=== PATIENT | male | born 1985 | race African-American/Black ===

== ENCOUNTER 2022-04-14 06:29 | Emergency (ER) | payer SELFPAY ==
--- NOTE | ~2022-04-14 | CT_ITS ---
EXAMINATION: CT brain wo con DATE: 04/14/2022 07:32 INDICATION: Altered mental status. Nonsensical rambling speedy speech. TECHNIQUE: Computed tomography (CT) of the head was performed without intravenous contrast. Sagittal and coronal reconstructions were performed. The mA was adjusted according to patient size. Iterative reconstruction technique was employed. The dose-length product was 1210.67 mGy-cm. COMPARISON: None FINDINGS: Evaluation moderately limited at the level of the base of the brain by motion artifact on both the in itial and repeat imaging. No acute intracranial hemorrhage, acute infarction or abnormal extra axial fluid collection. Ventricles are normal and symmetric. No mass/mass effect. The orbits, paranasal sin uses and mastoid air cells are normal. IMPRESSION: 1. Normal brain. No acute intracranial process. 2. Evaluation moderately limited at the base of the brain by motion artifact. Reviewed, dictated and finalized at location A.
[2022-04-14 06:30] VITALS: BP 140/90; PULSE 92; RESP 20; TEMP 36.3; O2SAT 95
--- NOTE | 2022-04-14 06:43 | ECG_ITS ---
Measurements Intervals [place] Rate: 96 P: 87 SD: 147 QRS: 93 QRSD: 81 T: 73 QT: 333 QTc: 423 Interpretive Statements SINUS RHYTHM WITH OCCASIONAL VENTRICULAR PREMATURE COMPLEXES BORDERLINE RIGHT AXIS DEVIATION [QRS AXIS > 90] NO PREVIOUS ECG AVAILABLE FOR COMPARISON Electronically Signed On 04-14-2022 14:01:07 CDT by Adebayo Dc M.D.
--- NOTE | 2022-04-14 06:47 | ED.AMS ---
HPI - Altered Mental Status General Chief Complaint: Altered Mental Status <Adebayo Stewart MD - Last Filed: 04/14/22 06:51> Stated Complaint: ambualnce <Adebayo Stewart MD - Last Filed: 04/14/22 06:51> Time Seen by Provider: 04/14/22 06:43 <Adebayo Stewart MD - Last Filed: 04/14/22 06:51> Source: patient and EMS <Adebayo Stewart MD - Last Filed: 04/14/22 06:51> Mode of arrival: ambulatory <Adebayo Stewart MD - Last Filed: 04/14/22 06:51> Limitations: altered mental status <Adebayo Stewart MD - Last Filed: 04/14/22 06:51> History of Present Illness HPI narrative: this is a 37-year-old male that was brought in by EMS after a known call our called EMS and patient apparently was at a alliance party and has altered mental status / confusion is alert walking about confused no acute distress denies any pain no shortness of breath no chest pain no nausea vomiting no abdominal pain no fever chills. Unknown if the patient was doing drugs or drinking alcohol. <Adebayo Stewart MD - Last Filed: 04/14/22 06:51> MD complaint: altered mental status and confusion <Adebayo Stewart MD - Last Filed: 04/14/22 06:51> Onset (ago): unknown <Adebayo Stewart MD - Last Filed: 04/14/22 06:51> Severity: moderate <Adebayo Stewart MD - Last Filed: 04/14/22 06:51> Context: drug abuse <Adebayo Stewart MD - Last Filed: 04/14/22 06:51> Associated symptoms: denies other symptoms <Adebayo Stewart MD - Last Filed: 04/14/22 06:51> Related Data Home Medications: Home Medications Medication Instructions Recorded Confirmed No Home Medications 04/14/22 04/14/22 <Adebayo Stewart MD - Last Filed: 04/14/22 06:51> Allergies/Adverse Reactions: Allergies Allergy/AdvReac Type Severity Reaction Status Date / Time No Known Allergies Allergy Verified 04/14/22 06:32 <Adebayo Stewart MD - Last Filed: 04/14/22 06:51> Review of Systems Review of Systems: All systems reviewed & are unremarkable except as noted in HPI and below <Adebayo Stewart MD - Last Filed: 04/14/22 06:51> PMFSH Past Medical History Medical History: Medical History Patient denies medical problems <Adebayo Stewart MD - Last Filed: 04/14/22 06:51> Exam Const: General: healthy appearing, no acute distress, alert and confusion <Adebayo Stewart MD - Last Filed: 04/14/22 06:51> Nutritional Appearance: well nourished <Adebayo Stewart MD - Last Filed: 04/14/22 06:51> Limitations: no limitations <Adebayo Stewart MD - Last Filed: 04/14/22 06:51> HENMT: Head: normal to inspection <Adebayo Stewart MD - Last Filed: 04/14/22 06:51> Face/Nose/Sinus: Normal external nose present <Adebayo Stewart MD - Last Filed: 04/14/22 06:51> Face and sinus: normal facial exam <Adebayo Stewart MD - Last Filed: 04/14/22 06:51> Mouth: Yes Normal oral and palatal mucosa present <Adebayo Stewart MD - Last Filed: 04/14/22 06:51> Eyes: Conjunctivae: conjunctivae normal <Adebayo Stewart MD - Last Filed: 04/14/22 06:51> EOM: EOMs intact bilaterally <Adebayo Stewart MD - Last Filed: 04/14/22 06:51> Direct Ophthalmoscopy: no photophobia <Adebayo Stewart MD - Last Filed: 04/14/22 06:51> Neck: Neck: normal visual inspection <Adebayo Stewart MD - Last Filed: 04/14/22 06:51> Chest: Chest palpation & inspection: normal inspection of the chest <Adebayo Stewart MD - Last Filed: 04/14/22 06:51> Resp: Effort & Inspection: normal respiratory effort <Adebayo Stewart MD - Last Filed: 04/14/22 06:51> Auscultation: clear to auscultation bilaterally <Adebayo Stewart MD - Last Filed: 04/14/22 06:51> Cardio: Rate: regular rate <Adebayo Stewart MD - Last Filed: 04/14/22 06:51> Rhythm: regular rhythm <Adebayo Stewart MD - Last Filed: 04/14/22 06:51> GI: GI Palp: Yes Soft to palpation
[2022-04-14] MEDS: SODIUM CHLORIDE 0.9% IV 1,000 ML 999 ML IV CONT (07:01)
[2022-04-14 07:09] LABS: Basophils Absolute Auto 0.03 K/mm3 (0.00-0.10); Basophils Percent Auto 0.3 % (0.0-1.0); Eosinophils Absolute Auto 0.15 K/mm3 (0.02-0.50); Eosinophils Percent Auto 1.4 % (1.0-6.0); Hematocrit 50.5 % (40.0-54.0); Hemoglobin 16.9 g/dL (14.0-18.0); Immature Granulocyte Absolute 0.05 K/mm3 (0.00-0.00); Immature Granulocyte Percent A 0.5 % (0.0-0.0); Lymphocytes Absolute Auto 2.65 K/mm3 (1.10-4.50); Lymphocytes Percent Auto 24.6 % (18.0-42.0); Mean Corpuscular HGB Conc 33.5 g/dL (32.0-36.0); Mean Corpuscular Volume 89.5 fL (78.0-102.0); Mean Platelet Volume 11.6 fl (8.7-11.0); Monocytes Absolute Auto 1.09 K/mm3 (0.10-0.90); Monocytes Percent Auto 10.1 % (2.0-11.0); Neutrophils Absolute Auto 6.8 K/mm3 (1.7-7.2); Neutrophils Percent Auto 63.1 % (50.0-70.0); Platelet Count Result 193 K/mm3 (150-420); Red Blood Count 5.64 M/mm3 (4.70-6.10); Red Cell Distribution Width 12.7 % (11.6-14.4); White Blood Count 10.8 K/mm3 (4.8-10.8)
[2022-04-14 07:15] LABS: Amphetamine Screen Urine Positive (Negative); Barbiturate Screen Urine Negative (Negative); Benzodiazepines Screen Urine Negative (Negative); Cannabinoid Screen Urine Negative (Negative); Cocaine Screen Urine Negative (Negative); Methadone Screen Urine Negative (Negative); Opiate Screen Urine Negative (Negative); Phencyclidine Screen Urine Negative (Negative)
[2022-04-14 07:25] LABS: Partial Thromboplastin Time 30.8 SEC (23.90-30.70); Prothrombin Time 11.3 Seconds (9.50-12.10)
[2022-04-14 07:31] LABS: Alanine Aminotransferase 17 U/L (16-63); Albumin Level 4.3 g/dL (3.4-5.0); Alkaline Phosphatase 88 U/L (46-116); Anion Gap 10 mmol/L (8-16); Aspartate Amino Transferase 15 U/L (15-37); Bilirubin,Total 0.7 mg/dL (0.00-1.00); Blood Urea Nitrogen 17 mg/dL (7-18); Calcium 9.2 mg/dL (8.5-10.1); Carbon Dioxide 30 mmol/L (21-32); Chloride 98 mmol/L (98-108); Creatine Kinase 221 U/L (39-308); Estimated CRCL calculation 79 ml/min; Estimated Glomerular Filt Rate > 60; Glucose 105 mg/dL (70-99); Osmolality Calculated 287 mOsm/kg (285-295); Potassium 3.6 mmol/L (3.5-5.1); Sodium 138 mmol/L (136-145); Thyroid Stimulating Hormone 1.11 uIU/mL (0.36-3.74); Total Protein 8.7 g/dL (6.4-8.2)
[2022-04-14 07:33] LABS: Ammonia < 10 umol/L (11-32); Ethanol < 3 mg/dL (0-6)
--- NOTE | 2022-04-14 08:12 | PC.NURSE ---
patient's girlfriend is here and she is helping him to the bathroom to get dressed.
[2022-04-14 08:39] VITALS: BP 152/98; PULSE 106; RESP 18; TEMP 36.8; O2SAT 100
== END 2022-04-14 08:42 | disposition home or self-care (01) ==
PROVIDERS: Emergency Medicine; Emergency Provider Emergency Medicine
DX: F19.10 Other psychoactive substance abuse, uncomplicated (principal)
CPT/HCPCS: 36415; 70450; 80053; 80307; 82140; 82550; 84443; 85025; 85610; 85730; 93005; 96360; 99284; J7030